=== PATIENT | female | born 1970 | race Caucasian/White ===

== ENCOUNTER 2020-02-02 21:19 | Emergency (ER) | payer OTHER ==
[~2020-02-02] VITALS: Ht 170.2 cm; Wt 83.9 kg
[~2020-02-02 21:19] MED LIST: NOHOMEMEDICATIONS; VICODIN 5-5001 EACH PO
[2020-02-02 22:23] LABS: BASOPHILS 0.4 % (0.0-2.0); EOSINOPHILS 3.6 % (0.0-3.0); HEMATOCRIT 39.4 % (37.0-47.0); HEMOGLOBIN 13.6 gm/dL (12.0-15.0); MCH 30.8 pg (26.0-34.0); MCHC 34.5 g/dL (28.0-37.0); MCV 89.5 fL (80.0-100.0); MONOCYTES 6.2 % (1.0-8.0); PLATELET COUNT 308 thou/uL (150-400); POLYS 56.8 % (36.0-66.0); RDW 12.8 % (10.5-14.5); WBC 8.8 thou/uL (4.0-11.0)
[2020-02-02 22:27] LABS: ANION GAP 10 mmol/L (7-16); BUN 15 mg/dL (7-18); CALCIUM 8.8 mg/dL (8.5-10.1); CHLORIDE 101 mmol/L (98-107); CO2 26 mmol/L (21-32); CREATININE 0.8 mg/dL (0.6-1.0); GLUCOSE 98 mg/dL (74-106); POTASSIUM 3.5 mmol/L (3.5-5.1); SODIUM 137 mmol/L (136-145)
[2020-02-02 22:41] LABS: ALBUMIN 3.7 g/dL (3.4-5.0); MAGNESIUM 2.1 mg/dL (1.8-2.4); SGOT 46 U/L (15-37); SGPT 34 U/L (30-65); TOTAL BILIRUBIN 0.6 mg/dL (<0.1-1.0); TOTAL PROTEIN 7.4 g/dL (6.4-8.2); TROPONIN-I <0.06 ng/mL (<0.06)
[2020-02-02 23:59] VITALS: BP 161/55
--- NOTE | 2020-02-03 08:40 | EKG ---
[facility] [place] [address] ELECTROCARDIOGRAM REPORT Name: CHEIKH CHIANG Room #: DEP [facility]#: [id number] Admission: 02/02/20 Attend Phys: Discharge: 02/03/20 Date of : 70 Report #: [id number] THIS REPORT FOR: cc: FAM - No family physician/PCP FAM - No family physician/PCP Monico Ford MD ~ THIS REPORT FOR: //name// [facility] ED Test Date: 2020-02-02 Test Time: 21:50:18 Pat Name: CHEIKH CHIANG Department: Room: Gender: F [employer]: goran champagne : 1970 Requested By: Jaskaran Segura Order Number: [id number] MD: Monico Ford Measurements Intervals Jenkins Rate: 60 P: 70 VT: 155 QRS: 30 QRSD: 103 T: 51 QT: 452 QTc: 452 Interpretive Statements Sinus rhythm No previous ECG available for comparison Electronically Signed On 02-03-2020 8:39:06 CDT by Monico Ford [email or web address] <ELECTRONICALLY SIGNED> By: Monico Ford MD 02/03/20 [id number] 49 Monico Ford MD /AG
== END 2020-02-03 | disposition home or self-care (01) ==
LOC: ER 21:19
PROVIDERS: Emergency Medicine
DX: R06.00 Dyspnea, unspecified (principal); R06.02 Shortness of breath; R11.0 Nausea; F41.1 Generalized anxiety disorder; F17.210 Nicotine dependence, cigarettes, uncomplicated